=== PATIENT | male | born 1970 | race African-American/Black ===

== ENCOUNTER 2016-07-23 09:37 | Emergency (ER) | payer SELFPAY ==
[~2016-07-23] VITALS: Ht 170.2 cm; Wt 84.0 kg
[~2016-07-23 09:37] MED LIST: BACTRIM DS1 TAB OR; BENADRYL 50MG C50 MG OR; BENADRYL25 M1 OR; FLEXERIL PO; LORTAB 10 OR; LORTAB 5/3255 MG PO; NO MEDS; PERCOCET 5/325M1 TAB OR; PROTONIX40 MG OR; ULTRAM50 M1 OR; ULTRAM50 M1 PO; ULTRAM50 MG OR
[2016-07-23] MEDS ORDERED: PERCOCET 5/325M1 TAB PO (10:18)
[2016-07-23] MEDS ORDERED: FLEXERIL PO (10:18)
[2016-07-23] MEDS ORDERED: MOTRIN800 MG PO (10:18)
[2016-07-23 10:31] VITALS: BP 140/90
== END 2016-07-23 10:32 | disposition home or self-care (01) | DRG 93 ==
LOC: ED 09:37
DX: G89.29 Other chronic pain (principal); K40.90 Unilateral inguinal hernia, without obstruction or gangrene, not specified as recurrent; M54.5 Low back pain; M62.830 Muscle spasm of back

== ENCOUNTER 2016-12-03 20:52 | Emergency (ER) | payer SELFPAY ==
[~2016-12-03] VITALS: Ht 170.2 cm; Wt 70.0 kg
[~2016-12-03 20:52] MED LIST changes: +MOTRIN800 MG PO; +PERCOCET 5/325M1 TAB PO
[2016-12-03] MEDS ORDERED: PERCOCET 5/325M1 TAB PO (21:22)
[2016-12-03] MEDS ORDERED: ACYCLOVIR400 MG PO (21:22)
[2016-12-03 21:35] VITALS: BP 147/93
== END 2016-12-03 21:35 | disposition home or self-care (01) | DRG 596 ==
LOC: ED 20:52
DX: B02.9 Zoster without complications (principal); R52 Pain, unspecified

== ENCOUNTER 2017-03-07 08:28 | Emergency (ER) | payer SELFPAY ==
[~2017-03-07] VITALS: Ht 170.2 cm; Wt 84.0 kg
[~2017-03-07 08:28] MED LIST changes: +ACYCLOVIR400 MG PO
[2017-03-07] MEDS ORDERED: ROBAXIN-750750 MG PO (09:23)
[2017-03-07] MEDS ORDERED: PERCOCET 5/325M1 TAB PO (09:23)
[2017-03-07] MEDS ORDERED: MOTRIN800 MG PO (09:23)
[2017-03-07 10:03] VITALS: BP 128/73
== END 2017-03-07 10:55 | disposition home or self-care (01) | DRG 93 ==
LOC: ED 08:28
DX: G89.29 Other chronic pain (principal); M54.5 Low back pain; K40.90 Unilateral inguinal hernia, without obstruction or gangrene, not specified as recurrent

== ENCOUNTER 2017-07-13 11:57 | Emergency (ER) | payer SELFPAY ==
[~2017-07-13] VITALS: Ht 170.2 cm; Wt 90.0 kg
[~2017-07-13 11:57] MED LIST changes: +ROBAXIN-750750 MG PO
[2017-07-13 12:47] LABS: URINE BILIRUBIN - DIPSTICK NEGATIVE (NEGATIVE); URINE BLOOD DIPSTICK NEGATIVE (NEGATIVE); URINE COLOR YELLOW; URINE GLUCOSE - DIPSTICK NEGATIVE (NEGATIVE); URINE KETONE NEGATIVE (NEGATIVE); URINE LEUK ESTERASE NEGATIVE (NEGATIVE); URINE NITRITE - DIPSTICK NEGATIVE (Negative); URINE PROTEIN - DIPSTICK NEGATIVE (NEG-TRACE); URINE UROBILINOGEN - DIPSTICK 0.2 E.U./dL (0.2)
[2017-07-13 12:48] LABS: IMMATURE GRANULOCYTES 0.2 % (0.0-1.0); MEAN CELL VOLUME 91.7 fL CALC (80.0-100.0); MEAN CORPUSCULAR HGB 29.2 pG CALC (26.0-32.0); MEAN CORPUSCULAR HGB CONC 31.8 g/L CALC (32.0-36.0); NEUT# 4.8 thou/uL (1.82-7.42); RED BLOOD COUNT 4.32 mill/uL (4.70-6.10); RED CELL DISTRI WIDTH 14.4 % (11.5-15.5)
[2017-07-13 12:49] LABS: URINE CLARITY CLEAR
[2017-07-13 12:50] LABS: HEMATOCRIT 39.6 % (39.0-50.0); HEMOGLOBIN 12.6 g/dl (14.0-18.0)
[2017-07-13 13:07] LABS: ALBUMIN 3.7 g/dL (3.2-5.0); ALKALINE PHOSPHATASE 48 u/l (38-126); ANION GAP 15 (6-22 (CALC)); BILIRUBIN, TOTAL 0.4 mg/dL (0.0-1.4); BUN 8 mg/dL (9-20); BUN/CREATININE RATIO 8 (12-20 (CALC)); CARBON DIOXIDE 26 mmol/l (22-30); CHLORIDE 107 mmol/l (95-108); GFR > 60 ML/MIN (>=60 (CALC)); GFR FOR AFR.AMER. > 60 ML/MIN (>=60 (CALC)); POTASSIUM 4.1 mmol/l (3.5-5.1); SGOT/AST 28 u/l (17-59); SGPT/ALT 46 u/l (21-72); SODIUM 144 mmol/l (137-146); TOTAL PROTEIN 6.8 g/dL (6.3-8.2)
[2017-07-13] MEDS ORDERED: ULTRAM50 M1 PO (15:20)
[2017-07-13 15:24] VITALS: BP 140/86
== END 2017-07-13 15:28 | disposition left against medical advice (07) | DRG 395 ==
LOC: ED 11:57 → ED-I 15:01 → ED 15:28
PROVIDERS: Emergency Medicine
DX: K40.90 Unilateral inguinal hernia, without obstruction or gangrene, not specified as recurrent (principal); Z91.19 Patient's noncompliance with other medical treatment and regimen
CPT/HCPCS: Q9967

== ENCOUNTER 2017-08-25 16:10 | Emergency (ER) | payer SELFPAY ==
[~2017-08-25] VITALS: Ht 170.2 cm; Wt 86.2 kg
[2017-08-25] MEDS ORDERED: FLEXERIL PO (17:28)
[2017-08-25] MEDS ORDERED: TORADOL PO (17:28)
[2017-08-25] MEDS ORDERED: MEDDOSEPAK PO (17:28)
[2017-08-25 17:32] VITALS: BP 136/77
== END 2017-08-25 17:35 | disposition home or self-care (01) | DRG 563 ==
LOC: ED 16:10
DX: S39.012A Strain of muscle, fascia and tendon of lower back, initial encounter (principal); X50.3XXA Overexertion from repetitive movements, initial encounter; Y93.89 Activity, other specified; Y92.89 Other specified places as the place of occurrence of the external cause; Y99.0 Civilian activity done for income or pay

== ENCOUNTER 2020-07-14 18:37 | Emergency (ER) | payer OTHER ==
[~2020-07-14] VITALS: Ht 170.2 cm; Wt 87.0 kg
[~2020-07-14 18:37] MED LIST changes: +MEDDOSEPAK PO; +TORADOL PO
[2020-07-14 19:14] LABS: HEMATOCRIT 47.6 % (39.0-50.0); IMMATURE GRANULOCYTES 0.3 % (0.0-5.0); MEAN CORPUSCULAR HGB CONC 31.5 g/dL CAL (32.0-36.0); NEUT# 9.31 thou/uL (1.82-7.42); RED BLOOD COUNT 5.35 mill/uL (4.70-6.10); RED CELL DISTRI WIDTH 13.3 % (11.5-15.5)
[2020-07-14 19:29] LABS: ALBUMIN 4.1 g/dL (3.2-5.0); ALKALINE PHOSPHATASE 48 u/l (38-126); BUN 8 mg/dL (9-20); BUN/CREATININE RATIO 8 (12-20 (CALC)); CARBON DIOXIDE 29 mmol/l (22-30); CHLORIDE 99 mmol/l (95-108); CREATININE 1.1 mg/dL (0.7-1.3); GFR > 60 ML/MIN (>=60 (CALC)); GFR FOR AFR.AMER. > 60 ML/MIN (>=60 (CALC)); POTASSIUM 4.4 mmol/l (3.5-5.1); SGOT/AST 25 u/l (17-59); TOTAL PROTEIN 7.5 g/dL (6.3-8.2)
[2020-07-14 19:30] LABS: ANION GAP 12 (6-22 (CALC)); BILIRUBIN, TOTAL 0.6 mg/dL (0.0-1.4); SODIUM 136 mmol/l (137-146)
[2020-07-14 21:05] LABS: URINE BILIRUBIN - DIPSTICK NEGATIVE (NEGATIVE); URINE BLOOD DIPSTICK SMALL (NEGATIVE); URINE COLOR YELLOW; URINE GLUCOSE - DIPSTICK NEGATIVE (NEGATIVE); URINE KETONE NEGATIVE (NEGATIVE); URINE PROTEIN - DIPSTICK NEGATIVE (NEG-TRACE); URINE SPECIFIC GRAVITY 1.025; URINE UROBILINOGEN - DIPSTICK 0.2 E.U./dL (0.2)
[2020-07-14 21:10] LABS: URINE NITRITE - DIPSTICK NEGATIVE (Negative)
[2020-07-14 21:11] LABS: URINE LEUK ESTERASE SMALL (NEGATIVE)
[2020-07-14 21:31] LABS: URINE WBC 0-2 WBC/hpf (0-5)
[2020-07-14 21:32] VITALS: BP 104/54
== END 2020-07-14 22:07 | disposition left against medical advice (07) ==
LOC: ED 18:37 → ED-I 20:38 → ED 22:07
PROVIDERS: Family Medicine
DX: T65.6X1A Toxic effect of paints and dyes, not elsewhere classified, accidental (unintentional), initial encounter (principal); L23.4 Allergic contact dermatitis due to dyes; L03.213 Periorbital cellulitis

== ENCOUNTER 2021-06-06 12:08 | Observation (INO) | payer OTHER ==
[~2021-06-06] VITALS: Ht 170.2 cm; Wt 90.0 kg
[2021-06-06] VITALS (17 sets, daily range): BP systolic 43–145; BP diastolic 15–87
[2021-06-06 13:22] LABS: URINE BILIRUBIN - DIPSTICK NEGATIVE (NEGATIVE); URINE BLOOD DIPSTICK NEGATIVE (NEGATIVE); URINE COLOR YELLOW; URINE GLUCOSE - DIPSTICK NEGATIVE (NEGATIVE); URINE KETONE NEGATIVE (NEGATIVE); URINE LEUK ESTERASE NEGATIVE (NEGATIVE); URINE PROTEIN - DIPSTICK NEGATIVE (NEG-TRACE); URINE SPECIFIC GRAVITY <=1.005; URINE UROBILINOGEN - DIPSTICK 0.2 E.U./dL (0.2)
[2021-06-06 13:24] LABS: URINE NITRITE - DIPSTICK NEGATIVE (Negative)
[2021-06-06 13:28] LABS: HEMATOCRIT 45.4 % (39.0-50.0); HEMOGLOBIN 14.2 g/dl (14.0-18.0); IMMATURE GRANULOCYTES 0.1 % (0.0-5.0); MEAN CELL VOLUME 90.1 fL CALC (80.0-100.0); MEAN CORPUSCULAR HGB 28.2 pG CALC (26.0-32.0); MEAN CORPUSCULAR HGB CONC 31.3 g/dL CAL (32.0-36.0); NEUT# 3.86 thou/uL (1.82-7.42); RED BLOOD COUNT 5.04 mill/uL (4.70-6.10); RED CELL DISTRI WIDTH 13.1 % (11.5-15.5)
[2021-06-06 13:30] LABS: ALBUMIN 4.3 g/dL (3.2-5.0); ALKALINE PHOSPHATASE 57 u/l (38-126); ANION GAP 10 (6-22 (CALC)); BILIRUBIN, TOTAL 0.3 mg/dL (0.0-1.4); BUN 9 mg/dL (9-20); BUN/CREATININE RATIO 9 (12-20 (CALC)); CARBON DIOXIDE 27 mmol/l (22-30); CHLORIDE 104 mmol/l (95-108); GFR > 60 ML/MIN (>=60 (CALC)); GFR FOR AFR.AMER. > 60 ML/MIN (>=60 (CALC)); LIPASE 80 u/l (23-300); POTASSIUM 3.9 mmol/l (3.5-5.1); SGOT/AST 35 u/l (17-59); SODIUM 138 mmol/l (137-146); TOTAL PROTEIN 8.2 g/dL (6.3-8.2)
[2021-06-07 03:31] VITALS: BP 122/82
[2021-06-07 05:46] LABS: HEMATOCRIT 43.5 % (39.0-50.0); HEMOGLOBIN 13.8 g/dl (14.0-18.0); MEAN CELL VOLUME 91.4 fL CALC (80.0-100.0); MEAN CORPUSCULAR HGB CONC 31.7 g/dL CAL (32.0-36.0); RED BLOOD COUNT 4.76 mill/uL (4.70-6.10); RED CELL DISTRI WIDTH 13.3 % (11.5-15.5)
[2021-06-07 05:50] LABS: ALBUMIN 3.5 g/dL (3.2-5.0); ALKALINE PHOSPHATASE 46 u/l (38-126); ANION GAP 10 (6-22 (CALC)); BILIRUBIN, TOTAL 0.2 mg/dL (0.0-1.4); BUN 14 mg/dL (9-20); BUN/CREATININE RATIO 13 (12-20 (CALC)); CARBON DIOXIDE 26 mmol/l (22-30); CHLORIDE 106 mmol/l (95-108); CREATININE 1.1 mg/dL (0.7-1.3); GFR > 60 ML/MIN (>=60 (CALC)); GFR FOR AFR.AMER. > 60 ML/MIN (>=60 (CALC)); POTASSIUM 4.4 mmol/l (3.5-5.1); SGOT/AST 29 u/l (17-59); SODIUM 138 mmol/l (137-146); TOTAL PROTEIN 6.6 g/dL (6.3-8.2)
[2021-06-07 07:51] VITALS: BP 128/77
[2021-06-07 18:17] VITALS: BP 152/70
[2021-06-08 05:12] VITALS: BP 127/77
[2021-06-08 15:22] VITALS: BP 142/86
[2021-06-08 20:54] VITALS: BP 127/78
[2021-06-09 04:00] VITALS: BP 113/63
[2021-06-09 08:14] VITALS: BP 165/92
[2021-06-09] MEDS ORDERED: TRAMADOL HCL50 MG PO (12:38)
== END 2021-06-09 14:20 | disposition home or self-care (01) ==
LOC: ED 12:08 → ED-I 16:20 → ED 16:36 → MS2 16:37
PROVIDERS: Nurse Practitioner; ADMIT Internal Medicine; ATTEND Internal Medicine
DX: K40.91 Unilateral inguinal hernia, without obstruction or gangrene, recurrent (principal); K40.90 Unilateral inguinal hernia, without obstruction or gangrene, not specified as recurrent; Z59.00 Homelessness unspecified; Z20.822 Contact with and (suspected) exposure to COVID-19
CPT/HCPCS: G0378; J1650; Q9967

== ENCOUNTER 2023-04-04 19:14 | Emergency (ER) | payer OTHER ==
[2023-04-04] VITALS (12 sets, daily range): BP systolic 116–141; BP diastolic 73–94
[~2023-04-04] VITALS: Ht 165.1 cm; Wt 72.6 kg
[~2023-04-04 19:14] MED LIST changes: +TRAMADOL HCL50 MG PO
[2023-04-04 19:50] LABS: BASO% 0.3 % (0-3); EOS% 0.5 % (0-8); HEMATOCRIT 42.9 % (39.0-50.0); HEMOGLOBIN 13.4 g/dl (14.0-18.0); IMMATURE GRANULOCYTES 0.1 % (0.0-5.0); LYMPH% 27.9 % (15-41); MEAN CELL VOLUME 93.1 fL CALC (80.0-100.0); MEAN CORPUSCULAR HGB 29.1 pG CALC (26.0-32.0); MEAN CORPUSCULAR HGB CONC 31.2 g/dL CAL (32.0-36.0); MONO% 5.9 % (2-13); NEUT# 4.85 thou/uL (1.82-7.42); NEUT% 65.3 % (42-76); RED BLOOD COUNT 4.61 mill/uL (4.70-6.10)
[2023-04-04 20:08] LABS: ALBUMIN 3.9 g/dL (3.2-5.0); ALKALINE PHOSPHATASE 55 u/l (38-126); ANION GAP 7 (6-22 (CALC)); BILIRUBIN, TOTAL 0.2 mg/dL (0.2-1.3); BUN 12 mg/dL (9-20); BUN/CREATININE RATIO 11 (12-20 (CALC)); CARBON DIOXIDE 30 mmol/l (22-30); CHLORIDE 106 mmol/l (95-108); CPK 238 u/l (55-170); CREATININE 1.1 mg/dL (0.7-1.3); GFR FOR AFR.AMER. > 60 ML/MIN (>=60 (CALC)); GFR OTHER RACES > 60 ML/MIN (>=60 (CALC)); POTASSIUM 3.9 mmol/l (3.5-5.1); SGOT/AST 31 u/l (17-59); SODIUM 139 mmol/l (137-146)
[2023-04-04] MEDS ORDERED: VOLTAREN - GENE75 MG PO (22:11)
[2023-04-04 22:19] LABS: URINE BILIRUBIN - DIPSTICK Negative (NEGATIVE); URINE BLOOD DIPSTICK Negative (NEGATIVE); URINE COLOR Yellow; URINE GLUCOSE - DIPSTICK Negative (NEGATIVE); URINE KETONE Negative (NEGATIVE); URINE LEUK ESTERASE Negative (NEGATIVE); URINE NITRITE - DIPSTICK Negative (Negative); URINE PH 7.5 (4.5-8.0); URINE PROTEIN - DIPSTICK Negative (NEG-TRACE); URINE UROBILINOGEN - DIPSTICK 0.2 E.U./dL (0.2)
== END 2023-04-04 22:25 | disposition home or self-care (01) ==
LOC: ED 19:14
PROVIDERS: Family Medicine
DX: R55 Syncope and collapse (principal); S46.912A Strain of unspecified muscle, fascia and tendon at shoulder and upper arm level, left arm, initial encounter; W19.XXXA Unspecified fall, initial encounter

== ENCOUNTER 2023-04-15 16:00 | Emergency (ER) | payer OTHER ==
[~2023-04-15] VITALS: Ht 167.6 cm; Wt 77.0 kg
[2023-04-15] VITALS (16 sets, daily range): BP systolic 108–128; BP diastolic 64–87
[~2023-04-15 16:00] MED LIST changes: +VOLTAREN - GENE75 MG PO
[2023-04-15] MEDS ORDERED: guaiFENesin-CODEINE 200-20 MG/10 ML UDC PO ONE (16:10)
[2023-04-15] MEDS ORDERED: IPRATROPIUM-Albuterol 0.5MG-2.5MG/3 ML NEB ONE (16:10)
[2023-04-15] MEDS ORDERED: SODIUM CHLORIDE 0.9% 1,000 ML IV ONE ×2 (16:10→17:10)
[2023-04-15] MEDS ORDERED: KETOROLAC TROMETHAMINE 30 MG/ML SDV IV ONE (16:10)
[2023-04-15 16:24] LABS: HEMATOCRIT 40.4 % (39.0-50.0); HEMOGLOBIN 13.3 g/dl (14.0-18.0); IMMATURE GRANULOCYTES 0.7 % (0.0-5.0); LYMPH% 5.5 % (15-41); MEAN CORPUSCULAR HGB 29.3 pG CALC (26.0-32.0); MEAN CORPUSCULAR HGB CONC 32.9 g/dL CAL (32.0-36.0); MONO% 3.5 % (2-13); NEUT# 19.63 thou/uL (1.82-7.42); NEUT% 90.3 % (42-76); RED BLOOD COUNT 4.54 mill/uL (4.70-6.10); RED CELL DISTRI WIDTH 12.8 % (11.5-15.5)
[2023-04-15 16:39] LABS: ALBUMIN 3.7 g/dL (3.2-5.0); CARBON DIOXIDE 28 mmol/l (22-30); CHLORIDE 99 mmol/l (95-108); POTASSIUM 4.1 mmol/l (3.5-5.1); TOTAL PROTEIN 7.3 g/dL (6.3-8.2)
[2023-04-15] MEDS ORDERED: AZITHROMYCIN 500 MG in SODIUM CHLORIDE 0.9% 250 ML IV ONE (16:40)
[2023-04-15 16:43] LABS: BUN 14 mg/dL (9-20); BUN/CREATININE RATIO 12 (12-20 (CALC)); CREATININE 1.2 mg/dL (0.7-1.3); GFR FOR AFR.AMER. > 60 ML/MIN (>=60 (CALC)); GFR OTHER RACES > 60 ML/MIN (>=60 (CALC))
[2023-04-15 16:47] LABS: ALKALINE PHOSPHATASE 112 u/l (38-126); ANION GAP 9 (6-22 (CALC)); BILIRUBIN, TOTAL 0.6 mg/dL (0.2-1.3); SGOT/AST 56 u/l (17-59); SODIUM 132 mmol/l (137-146)
[2023-04-15 16:55] LABS: URINE BLOOD DIPSTICK Moderate (NEGATIVE); URINE GLUCOSE - DIPSTICK Negative (NEGATIVE); URINE KETONE Negative (NEGATIVE); URINE LEUK ESTERASE Negative (NEGATIVE); URINE NITRITE - DIPSTICK Negative (Negative); URINE PROTEIN - DIPSTICK 100 mg/dL (NEG-TRACE); URINE SPECIFIC GRAVITY 1.025; URINE UROBILINOGEN - DIPSTICK >=8.0 E.U./dL (0.2)
[2023-04-15 16:58] LABS: URINE COLOR Dark yellow
[2023-04-15 17:10] LABS: URINE RBC 0-2 RBC/hpf (0-5)
[2023-04-15] MEDS ORDERED: MAGNESIUM HYDROXIDE 30 ML UDC PO PRN (19:15)
[2023-04-15] MEDS ORDERED: ACETAMINOPHEN 325 MG/TAB PO PRN (19:15)
[2023-04-15] MEDS ORDERED: NITROGLYCERIN 0.4 MG/TAB SL PRN (19:15)
[2023-04-15] MEDS ORDERED: IPRATROPIUM-Albuterol 0.5MG-2.5MG/3 ML NEB SCH (19:25)
[2023-04-15] MEDS ORDERED: BENZONATATE200 MG PO (19:54)
[2023-04-15] MEDS ORDERED: VIBRAMYCIN100 M2 PO (19:54)
[2023-04-15] MEDS ORDERED: ENOXAPARIN SODIUM 40 MG/0.4 ML SYR SC SCH (21:00)
[2023-04-16] MEDS ORDERED: AZITHROMYCIN 500 MG in SODIUM CHLORIDE 0.9% 250 ML IV SCH (09:00)
== END 2023-04-15 20:16 | disposition left against medical advice (07) ==
LOC: ED 16:00 → ED-I 16:22 → ED 16:22 → ED-I 16:28 → ED 20:16
PROVIDERS: Nurse Practitioner
DX: J18.9 Pneumonia, unspecified organism (principal); R09.02 Hypoxemia; Z20.822 Contact with and (suspected) exposure to COVID-19; Z53.29 Procedure and treatment not carried out because of patient's decision for other reasons

== ENCOUNTER 2023-08-26 10:06 | Observation (INO) | payer OTHER ==
[~2023-08-26] VITALS: Ht 167.6 cm; Wt 72.5 kg
[2023-08-26] VITALS (18 sets, daily range): BP systolic 110–137; BP diastolic 65–84
[~2023-08-26 10:06] MED LIST changes: +BENZONATATE200 MG PO; +VIBRAMYCIN100 M2 PO
[2023-08-26] MEDS ORDERED: MORPHINE SULFATE 4 MG/ML VIAL IV ONE ×2 (10:30→15:35)
[2023-08-26] MEDS ORDERED: ONDANSETRON HCl 4 MG/2 ML SDV IV ONE (10:30)
[2023-08-26] MEDS ORDERED: SODIUM CHLORIDE 0.9% 1,000 ML IV ONE (10:30)
[2023-08-26 11:02] LABS: BASO% 0.3 % (0-3); HEMATOCRIT 43.6 % (39.0-50.0); HEMOGLOBIN 13.8 g/dl (14.0-18.0); IMMATURE GRANULOCYTES 0.1 % (0.0-5.0); LYMPH% 29.5 % (15-41); MEAN CELL VOLUME 92.4 fL CALC (80.0-100.0); MEAN CORPUSCULAR HGB 29.2 pG CALC (26.0-32.0); MEAN CORPUSCULAR HGB CONC 31.7 g/dL CAL (32.0-36.0); MONO% 9.1 % (2-13); NEUT# 4.5 thou/uL (1.82-7.42); RED BLOOD COUNT 4.72 mill/uL (4.70-6.10); RED CELL DISTRI WIDTH 13.2 % (11.5-15.5)
[2023-08-26 11:11] LABS: CREATININE 0.9 mg/dL (0.7-1.3); POTASSIUM 4.5 mmol/l (3.5-5.1)
[2023-08-26] MEDS ORDERED: HYDROmorphone HCL 2 MG/AMP IV ONE (11:40)
[2023-08-26] MEDS ORDERED: FAMOTIDINE 10MG/ML 2ML SDV IV ONE (12:27)
[2023-08-26] MEDS ORDERED: LACTATED RINGER'S 1,000 ML IV ONE (12:27)
[2023-08-26] MEDS ORDERED: SODIUM CHLORIDE 0.9% 50 ML IV ONE (12:33)
[2023-08-26] MEDS ORDERED: ceFAZolin Sodium 2 GM/VIAL SDV ONE (12:33)
[2023-08-26] MEDS ORDERED: SODIUM CHLORIDE 0.9% 1,000 ML IV PRN (14:40)
[2023-08-26] MEDS ORDERED: oxyCODONE 5MG/ ACETAMINOPHEN 325MG TAB PO PRN (14:40)
[2023-08-26] MEDS ORDERED: ONDANSETRON HCl 4 MG/2 ML SDV IV PRN (14:40)
[2023-08-26] MEDS ORDERED: HYDROmorphone HCL 2 MG/AMP IV PRN (14:40)
[2023-08-26] MEDS ORDERED: ACETAMINOPHEN 100 ML IV ONE (14:51)
[2023-08-26] MEDS ORDERED: ROCURONIUM BROMIDE 10 MG/ML 5ML VIAL IV ONE (15:35)
[2023-08-26] MEDS ORDERED: MIDAZOLAM HCL 2 MG/2 ML VIAL IV ONE (15:35)
[2023-08-26] MEDS ORDERED: PROPOFOL 200 MG/20 ML VIAL IV ONE (15:35)
[2023-08-26] MEDS ORDERED: KETOROLAC TROMETHAMINE 30 MG/ML SDV IV ONE (15:35)
[2023-08-26] MEDS ORDERED: DEXAMETHASONE SODIUM PHOSPHATE PF 10 MG/ML SDV IV ONE (15:35)
[2023-08-26] MEDS ORDERED: LACTATED RINGER'S 1,000 ML BAG IV ONE (15:35)
[2023-08-26] MEDS ORDERED: SUGAMMADEX SODIUM 200 MG/2 ML SDV IV ONE (15:35)
[2023-08-26] MEDS ORDERED: GLYCOPYRROLATE 0.2 MG/ML IV ONE (15:35)
[2023-08-26] MEDS ORDERED: LIDOCAINE HCL 2% 2ML SDV IV ONE (15:35)
[2023-08-26] MEDS ORDERED: SUCCINYLCHOLINE CHLORIDE 20 MG/ML 10ML VIAL IV ONE (15:35)
[2023-08-26] MEDS ORDERED: KETOROLAC TROMETHAMINE 15 MG/ML SDV IV SCH (18:00)
[2023-08-27] VITALS (12 sets, daily range): BP systolic 105–135; BP diastolic 51–80
[2023-08-27 05:11] LABS: BASO% 0.1 % (0-3); HEMATOCRIT 41.6 % (39.0-50.0); HEMOGLOBIN 13.2 g/dl (14.0-18.0); IMMATURE GRANULOCYTES 0.7 % (0.0-5.0); LYMPH% 9.9 % (15-41); MEAN CELL VOLUME 93.1 fL CALC (80.0-100.0); MEAN CORPUSCULAR HGB 29.5 pG CALC (26.0-32.0); MEAN CORPUSCULAR HGB CONC 31.7 g/dL CAL (32.0-36.0); MONO% 7.9 % (2-13); NEUT# 8.66 thou/uL (1.82-7.42); NEUT% 81.4 % (42-76); RED BLOOD COUNT 4.47 mill/uL (4.70-6.10); RED CELL DISTRI WIDTH 13.2 % (11.5-15.5)
[2023-08-27 05:33] LABS: CREATININE 1.1 mg/dL (0.7-1.3); POTASSIUM 4.8 mmol/l (3.5-5.1)
[2023-08-27 05:35] LABS: ALBUMIN 2.9 g/dL (3.2-5.0); BILIRUBIN, TOTAL 0.3 mg/dL (0.2-1.3); TOTAL PROTEIN 5.7 g/dL (6.3-8.2)
[2023-08-27] MEDS ORDERED: PERCOCET 5/325M1 TAB PO (10:32)
== END 2023-08-27 12:15 | disposition home or self-care (01) ==
LOC: ED 10:06 → ED-I 10:58 → ED 10:58 → ED-I 10:58 → ED 11:29 → ORM 11:30 → MS2 15:46 → ICU 17:02
PROVIDERS: Family Medicine; ADMIT Surgery; ATTEND Surgery
DX: K40.30 Unilateral inguinal hernia, with obstruction, without gangrene, not specified as recurrent (principal); K40.91 Unilateral inguinal hernia, without obstruction or gangrene, recurrent; Z87.891 Personal history of nicotine dependence
CPT/HCPCS: C1781; J0131; J0690; J1100